=== PATIENT | male | born 1995 | race Hispanic/Latino ===

== ENCOUNTER 2025-07-10 17:09 | Emergency (ER) | payer SELFPAY ==
[~2025-07-10] VITALS: Ht 180.3 cm; Wt 90.7 kg
[2025-07-10 17:41] LABS: APPEARANCE,URINE CLEAR (CLEAR); GLUCOSE, URINE (UA) NEGATIVE (NEGATIVE); LEUKOCYTE ESTERASE ,URINE NEGATIVE Leu/uL (NEGATIVE); NITRATE,URINE NEGATIVE (NEGATIVE); OCCULT BLOOD,URINE NEGATIVE (NEGATIVE)
[2025-07-10 17:42] LABS: ADD UA MICROSCOPIC NO
[2025-07-10] MEDS: 0.9%NACL 1000ML 2,721 ML IV ONE (17:46)
[2025-07-10 18:02] LABS: COVID19 (SARS ANTIGEN RAPID) PRESUMPTIVE NEGATIVE (NEGATIVE); INFLUENZA TYPE A Negative For Type A (NEGATIVE); INFLUENZA TYPE B Negative For Type B (NEGATIVE)
[2025-07-10 18:02] LABS: IMMATURE GRANULOCYTE ABSOLUTE 0.04 K/uL (0-1); NUCLEATED RED BLOOD CELLS 0.0 % (0.0-0.19); PLATELET COUNT (AUTO) 288 K/uL (130-400); RED BLOOD CELL COUNT(AUTO) 5.19 MIL/uL (4.50-6.20); RED CELL DISTRIBUTION WIDTH 12.6 % (11.0-15.5); WHITE BLOOD COUNT (AUTO) 8.2 K/uL (4.8-10.8)
[2025-07-10 18:12] LABS: CREATININE 0.7 mg/dL (0.5-1.3); GLOMERULAR FILTR. RATE CALC 126.0 mL/min (>90); GLUCOSE,RANDOM 110.0 mg/dL (70-105); SODIUM SERUM 140.0 mmol/L (136-145); UREA NITROGEN, BLOOD 12.0 mg/dL (7-18)
[2025-07-10 18:21] LABS: CREATINE KINASE, TOTAL 143.0 U/L (21-232)
--- NOTE | 2025-07-10 18:25 | ERN ---
ED Note History of Present Illness Stated Complaint: CHEST PAIN Chief Complaint: Chest Pain Time Seen by MD: 17:18 Dictation: 29-YEAR-OLD PRESENTS TO ER COMPLAINS OF FEVER, NAUSEA, NASAL CONGESTION, AND FATIGUE FOR 1 DAY. Allergies: Coded Allergies: No Known Allergies (Unverified Allergy, Unknown, 07/10/25) Past Medical History Past Medical History: Anxiety, Schizophrenia Surgical History: Other Review of System Dictation CONSTITUTIONAL: NEGATIVE FOR WEIGHT LOSS, POSITIVE FOR FEVER AND FATIGUE EYES: NEGATIVE FOR INJURY, PAIN,REDNESS, AND DISCHARGE ENT: NEGATIVE FOR INJURY,PAIN OR SWELLING. POSITIVE FOR NASAL CONGESTION CARDIOVASCULAR: NEGATIVE FOR CHEST PAIN, PALPITATIONS, AND EDEMA RESPIRATORY: NEGATIVE FOR SHORTNESS OF BREATH, COUGH, WHEEZING, AND PLEURITIC CHEST PAIN ABDOMEN/GI: NEGATIVE FOR ABDOMINAL PAIN, VOMITING, DIARRHEA, AND CONSTIPATION. POSITIVE FOR NAUSEA BACK: NEGATIVE FOR INJURY AND PAIN : NEGATIVE FOR INJURY, BLEEDING AND DISCHARGE MS/EXTREMITY: NEGATIVE FOR INJURY AND DEFORMITY SKIN: NEGATIVE FOR RASH, AND DISCOLORATION NEURO: NEGATIVE FOR HEADACHE, WEAKNESS, NUMBNESS, TINGLING, AND SEIZURE PSYCH: NEGATIVE FOR SUICIDE IDEATION, HOMICIDAL IDEATION, AND HALLUCINATIONS ALLERGY/IMMUNOLOGY: NEGATIVE FOR HIVES, RASH, AND ALLERGIES Initial Vital Sign VS Vital Signs Date Time Temp Pulse Resp B/P (MAP) Pulse Ox O2 Delivery O2 Flow Rate FiO2 07/10/25 17:13 98.1 75 20 120/82 99 Room Air 07/10/25 17:27 0 21 Physical Exam Dictation GENERAL: AWAKE, ALERT, NAD HEAD/FACE: NORMOCEPHALIC, ATRAUMATIC EYES: PERRL, EOMI, VISION AT BASELINE ENT: ORAL CAVITY CLEAR, TMS CLEAR, NO SIGNS OF INFECTION NECK: TRACHEA MIDLINE, SUPPLE, NO NUCHAL RIGIDITY CARDIOVASCULAR: RRR, NORMAL S1/S2, NO MRGS, NO JVD RESPIRATORY: CTAB, NO RESPIRATORY DISTRESS, NO RALES OR WHEEZES ABDOMEN: SOFT, NON-TENDER, NON-DISTENDED, NORMAL BOWEL SOUNDS, NO GUARDING OR REBOUND. SKIN: WARM, DRY, NORMAL TURGOR, NO RASH MS/EXTREMITY: PULSES EQUAL, NO CYANOSIS, NEUROVASCULAR INTACT, FROM NEURO: COAX4, GCS 15, STRENGTH 5/5, CN 2-12 INTACT, NORMAL CEREBELLAR EXAM, NORMAL GAIT, PSYCH: NORMAL BEHAVIOR, MOOD, AND AFFECT NORMAL Results (Laboratory/Radiology) Laboratory/Radiology Laboratory Tests Test 07/10/25 17:34 07/10/25 17:38 07/10/25 17:55 Urine Color LIGHT-YELLOW (YELLOW) Urine Appearance CLEAR (CLEAR) Urine pH 5.5 (5.0-8.0) Urine Specific [place] 1.015 (1.001-1.031) Urine Protein NEGATIVE mg/dL (NEGATIVE) Urine Glucose (UA) NEGATIVE mg/dL (NEGATIVE) Urine Ketones NEGATIVE mg/dL (NEGATIVE) Urine Occult Blood NEGATIVE (NEGATIVE) Urine Nitrate NEGATIVE (NEGATIVE) Urine Bilirubin NEGATIVE mg/dL (NEGATIVE) Urine Urobilinogen 0.2 mg/dL (0.2-1.0) Urine Leukocyte Esterase NEGATIVE [place]/uL Influenza Type A Antigen Negative For Type A Influenza Type B Antigen Negative For Type B SARS-CoV-2 Antigen (Rapid) PRESUMPTIVE NEGATIVE White Blood Count 8.2 K/uL (4.8-10.8) Red Blood Count 5.19 MIL/uL (4.50-6.20) Hemoglobin 15.1 g/dL (14.0-18.0) Hematocrit 44.2 % (42-54) Mean Corpuscular Volume 85.2 fL (79-99) Mean Corpuscular Hemoglobin 29.1 pg (27.0-33.0) Mean Corpuscular Hemoglobin Concent 34.2 g/dL (32.0-36.0) Red Cell Distribution Width 12.6 % (11.0-15.5) Platelet Count 288 K/uL (130-400) Mean Platelet Volume 9.5 fL (7.5-10.5) Immature Granulocyte % (Auto) 0.5 % (0-1) Neutrophils (%) (Auto) 54.8 % (40.0-77.0) Lymphocytes (%) (Auto) 24.8 % (21.0-51.0) Monocytes (%) (Auto) 8.6 % (3.0-13.0) Eosinophils (%) (Auto) 10.6 % (0.0-8.0) H Basophils (%) (Auto) 0.7 % (0.0-5.0) Neutrophils # (Auto) 4.5 K/uL (1.8-7.7) Lymphocytes # (Auto) 2.0 K/uL (1.0-4.8) Monocytes # (Auto) 0.7 K/uL (0.1-1.0) Eosinophils # (Auto) 0.87 K/uL (0.00-0.70) H Basophils # (Auto) 0.06 K/uL (0.00-0.20) Absolute Immature Granulocyte (auto 0.04 K/uL (0-1) Nucleated Red Blood Cells 0.0 % (0.0-0.19) Sodium Level 140 mmol/L (136-145) Potassium Level 4.0 mmol/L (3.5-5.1) Chloride Level 104 mmol/L (101-111) Carbon Dioxide Level 29 mmol/L (21-32) Blood Urea Nitrogen 12 mg/dL (7-18) Creatinine 0.7 mg/dL (0.5-1.3) Glomerular Filtration Rate Calc 126 mL/min (>90) Random Glucose 110 mg/dL (70-105) H Lactic Acid Level 1.5 mmol/L (0.8-2.5) Total Calcium 8.4 mg/dL (8.5-10.1) L Total Creatine Kinase 143 U/L (21-232) Troponin I High Sensitivity 6 ng/L (4-75) ED Course ED Course Orders Procedure Category Date Status Time Cbc With Differential LAB 07/10/25 Complete 17:29 Chest 2vws RAD 07/10/25 Resulted 17:29 12 Lead Ekg Tracing- EKG 07/10/25 Logged Technical 17:29 Creatine Kinase, Total LAB 07/10/25 Complete 17:29 Troponin I High LAB 07/10/25 Complete Sensitivity 17:29 Urinalysis Profile LAB 07/10/25 Complete 17:29 Basic Metabolic Panel LAB 07/10/25 Complete 17:29 Blood Cult ZANDER 07/10/25 In Process 17:29 Culture Urine ZANDER 07/10/25 In Process 17:29 0.9%Nacl 1000ml (Ns PHA 07/10/25 Complete 1000ml) 17:30 Lactic Acid LAB 07/10/25 Complete 17:29 Influenza Type A & B, LAB 07/10/25 Complete Rapid 17:29 Covid19 (Sars Antigen LAB 07/10/25 Complete Rapid) 17:29 Ondansetron 4mg Inj PHA 07/10/25 Complete (Zofran 4mg Inj) 17:30 0.9%Nacl 1000ml (Ns PHA 07/10/25 Complete 1000ml) 18:00 Current Medications Medications (Trade) Dose Ordered Sig/Anuel Route PRN Reason Start Time Stop Time Status Last Admin Dose Admin Ondansetron HCl (zoFRAN 4MG INJ) 4 mg ONCE ONCE IVP 07/10/25 17:30 07/10/25 17:38 DC 07/10/25 17:46 Sodium Chloride 1,000 ml @ 0 mls/hr ONCE ONCE IV 07/10/25 18:00 07/10/25 18:01 DC 07/10/25 18:46 Sodium Chloride 2,721 ml @ 907 mls/hr ONCE ONCE IV 07/10/25 17:30 07/10/25 17:45 DC 07/10/25 17:46 Vital Signs Date Time Temp Pulse Resp B/P (MAP) Pulse Ox O2 Delivery O2 Flow Rate FiO2 07/10/25 17:27 98.2 69 16 120/43 98 Room Air* 0 21 07/10/25 17:13 98.1 75 20 120/82 99 Room Air Medical Decision Making MDM 29-YEAR-OLD PRESENTS TO ER COMPLAINS OF CHEST PAIN, FEVER, NAUSEA, NASAL CONGESTION, AND FATIGUE FOR 1 DAY. DENIES DIARRHEA, ABDOMINAL PAIN OR SHORTNESS OF BREATH. PATIENT WITH HISTORY OF PSYCH ISSUES. DENIES HOMICIDAL OR SUICIDAL IDEATIONS AT THIS TIME. WE WILL EVALUATE FEVER AND CHEST PAIN SENDING LAB WORK. PHYSICAL EXAM NORMAL, PATIENT ASKING FOR FOOD. A 14 POINTS ROS DONE, PERTINENT POSITIVE AND NEGATIVES DESCRIBED IN HPI; ALL OTHERS NEGATIVE. TIME WAS SPENT ON COUNSELING, REVIEWING MEDICAL RECORDS, REVIEWING THE ENTIRE VISIT DOCUMENTATION (INCLUDING ANY COMMENTS THAT MAY HAVE BEEN GIVEN BY THE PATIENT I.E. THE REVIEW OF SYSTEMS) AND COORDINATION OF CARE ALL LABS NORMAL. WILL DISCHARGE WITH VIRAL ILLNESS. PATIENT VSS, NAD, NONTOXIC, STABLE FOR DISCHARGE. PT GIVEN DISCHARGE INSTRUCTIONS IN [place]MAN TERMS AND UNDERSTOOD, ALL QUESTIONS ANSWERED. PT WILL FOLLOW UP WITH PCP AND RETURN TO THE ER IF WORSE. DX & DISP Disposition: Discharge Departure Impression: Primary Impression: Viral illness Additional Impressions: Nausea, Fatigue Condition: Stable Assign Patient to: FOLLOW-UP WITH YOUR PCP IN 24-72 HOURS AND IN THE EVENT IF SYMPTOMS WORSEN OR AN EMERGENCY OVERNIGHT REPORT TO THE ED IMMEDIATELY Referrals: SELF,REFERRAL (PCP) I performed a substantive portion of the visit. I have reviewed and personally made and approve the management plan that is documented in the notes by myself with TAWANDA/resident. I acknowledged full responsibility for the patient's management plan. BHAVANA KNIGHT NP Jul 10, 2025 18:25 MEAGAN VALLADARES DO Jul 10, 2025 18:48
--- NOTE | 2025-07-10 18:30 | HMCIMG ---
EXAM: CR Chest, 3 View. CLINICAL HISTORY: CHEST PAIN COMPARISON: None provided. FINDINGS: LUNGS: There is no mass, infiltrate, or acute pulmonary abnormality. PLEURAL SPACES: No pleural effusion or pneumothorax. MEDIASTINUM: Cardiac size and mediastinal contours within normal limits. BONES: No aggressive appearing osseous lesion seen. IMPRESSION: No acute cardiopulmonary pathology is evident. /Myrtle
--- NOTE | 2025-07-10 18:38 | NUR ---
SPOKE WITH PENNY FROM THE 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 INFORMED HER PT WOULD BE IN ROOM 11 AND TO NOTIFY STAFF OF ARRIVAL TO ESCORT PATIENT OUTSIDE. PENNY AGREED TO NOTIFY [employer]ES [employer]./AJITH
[2025-07-10] MEDS: 0.9%NACL 1000ML 1,000 ML IV ONE (18:46)
[2025-07-10 18:47] VITALS: BP 124/62; PULSE 65; RESP 16; TEMP 98.3; O2SAT 98
--- NOTE | 2025-07-10 18:59 | EKG ---
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
== END 2025-07-10 19:46 | disposition home or self-care (01) ==
LOC: EDH 17:09
DX: B34.9 Viral infection, unspecified (principal); R11.0 Nausea; R53.83 Other fatigue; F20.9 Schizophrenia, unspecified; Z20.822 Contact with and (suspected) exposure to COVID-19
CPT/HCPCS: 99285; 96374; 71046; 96361; 87426; 82550; 84484; 80048; 85025; 87040 ×2; 87086; 87804 ×2; 83605; 81003; 36415; 93005; J7030; J2405